=== PATIENT | male | born 1975 | race Caucasian/White ===

== ENCOUNTER 2017-04-26 10:19 | Emergency (ER) | payer BC, OTHER ==
[~2017-04-26] VITALS: Ht 157.5 cm; Wt 89.2 kg
[2017-04-26 10:25] VITALS: Ht 157.5 cm; Wt 89.2 kg
[2017-04-26] MEDS ORDERED: ONDANSETRON 4 MG INJ IV STA (10:35)
[2017-04-26] MEDS ORDERED: HYDROmorphONE 1 MG/ML SYG IV STA (10:35)
[2017-04-26] MEDS ORDERED: SOD CHLORIDE 0.9% 1,000 ML IV STA ×2 (10:35→11:58)
[2017-04-26] MEDS ORDERED: KETOROLAC 30 MG INJ IV STA (10:35)
[2017-04-26] MEDS ORDERED: TAMSULOSIN (SR) 0.4 MG CAP PO ONE (11:00)
[2017-04-26] MEDS ORDERED: CIPR500T4 PO (12:00)
[2017-04-26] MEDS ORDERED: TAMS-14 PO (12:00)
--- NOTE | 2017-04-26 12:00 | RADRPT ---
PROCEDURE: CT Abdomen and Pelvis without contrast. CLINICAL INDICATION: Flank pain. TECHNIQUE: CT scan of the abdomen and pelvis without contrast was performed on a multidetector hig h-resolution CT scanner. The patient was scanned without intravenous contrast. Coronal and sagittal reformatted images were obtained from the axial source images. Images were reviewed on a high-resol [employer] PACS workstation. One or more of the following dose reduction techniques were used: Automated exposure control, adjustment of the mA and/or kV according to patient size, use of iterative recon struction technique. The total exam CTDI equals 11.72 mGy and the total exam DLP equals 725.92 mGy- cm. COMPARISON: CT from 07/07/2012 FINDINGS: CT abdomen: The lung bases are clear. The heart size is normal, without pericardial thickening or effusion. The liver is enlarged measuring 19 cm in size and demonstrates normal density without focal mass or intrahepatic biliary dilatation. The spleen is also enlarged measuring 14.1 cm in size and is homog eneous in density. The stomach is grossly unremarkable. The pancreas as visualized is normal. The gallbladder and biliary tree are unremarkable and there is no evidence for biliary dilatation. The adrenal glands are symmetric and normal. The kidneys are symmetrically unremarkable as well. No r enal calculus or obstructive uropathy or mass lesion is seen. The aorta is of normal caliber. Mild aortoiliac atherosclerotic calcifications are present. There is no retroperitoneal lymphadenopathy. The meghna hepatis region is clear. Calcified mesenteric lymph nodes are present, likely secondary to prior granulomatous disease. Otherwise, the small bowel and mesentery, as visualized, are unremarkable. CT pelvis: The small bowel loops situated within the pelvis are unremarkable. The pelvic organs are normal. T he pelvic sidewalls and inguinal regions are clear. The sigmoid colon and rectum are unremarkable. The appendix is normal. No mass, lymphadenopathy, or free fluid is seen. No acute inflammation is s een. The surrounding osseous structures are unremarkable. No osteolytic or osteoblastic lesion is detec foe. IMPRESSION: 1. No abdominal or pelvic acute inflammatory process, mass, or lymphadenopathy. 2. Hepatosplenomegaly. RPTAT: QQ .Je Glover MD, MD Date Time Electronically viewed and signed by .Je Glover MD, on 04/26/2017 11:59 .A/
[2017-04-26] MEDS ORDERED: ROSU40TA35 PO (12:15)
[2017-04-26 12:31] VITALS: BP 139/76; PULSE 78; RESP 20
--- NOTE | 2017-04-27 06:12 | ERD ---
ER Documentation Chief Complaint Chief Complaint Complains of flank pain Hx of Kidney stones HPI This is a very pleasant 41-year-old male with a known history of nephrolithiasis. The patient indicates his last episode of kidney stones was roughly 2 years prior to arrival. Over the past several days the patient indicates he has been having severe left flank pain. The pain is 10 out of 10 in intensity. He denies any fever shaking or chills. He denies any lower abdominal pain. He does indicate that he has had hematuria with no frequency urgency or dysuria. No shortness of breath at rest or exertion. No chest pain or pressure that radiates the neck arm back or jaw. ROS All systems reviewed and are negative except as per history of present illness. Medications Home Meds Active Scripts Tamsulosin Hcl* (Flomax*) 0.4 Mg Cap.er.24h, 0.4 MG PO BID, #10 CAP Prov:ALICETRISTA 04/26/17 Ciprofloxacin Hcl* (Ciprofloxacin Hcl*) 500 Mg Tablet, 500 MG PO BID for 7 Days , TAB Prov:TRISTA JENKINS 04/26/17 Reported Medications Rosuvastatin Calcium* (Crestor*) 40 Mg Tablet, 40 MG PO QHS, #30 TAB 04/26/17 Allergies Allergies: Coded Allergies: No Known Allergy (Unverified , 01/13/13) PMhx/Soc History of Surgery: No Anesthesia Reaction: No Hx Neurological Disorder: No Hx Respiratory Disorders: No Hx Cardiac Disorders: No Hx Psychiatric Problems: No Hx Miscellaneous Medical Probl: No Hx Alcohol Use: No Hx Substance Use: No Hx Tobacco Use: Yes Smoking Status: Never smoker Physical Exam Vitals Vital Signs Date Time Temp Pulse Resp B/P Pulse Ox O2 Delivery O2 Flow Rate FiO2 04/26/17 12:31 78 20 139/76 99 Room Air 04/26/17 10:25 82.0 82 20 120/74 98 Physical Exam Constitutional:Well-developed. Well-nourished. HEENT:Normocephalic. Atraumatic.Pupils were equal round reactive to light. Moist mucous membranes.No tonsillar exudates. Neck: No nuchal rigidity. No lymphadenopathy. No posterior cervical spine tenderness or step-offs. Respiratory: Not using accessory muscles of respiration.Lungs were clear to auscultation bilaterally. No rhonchi. No rales. No wheezing. Cardiovascular: Regular rate regular rhythm.No murmurs. No rubs were appreciated.S1, S2 normal. Distal pulses are palpable 2+ bilaterally. GI: Abdomen was soft. Nontender. Non Distended. No pulsatile abdominal masses or bruits. No rebound. No guarding. Bowel sounds were present and normal. No CVA tenderness Muscle skeletal: Full range of motion of both the upper and lower extremities bilaterally.Normal muscle tone.No assymetrical calf tenderness or swelling. Skin: No petechia, no purpura. No lesions on the palms or the soles of the feet. No maculopapular rash. NEURO: Patient was alert, awake, orientated x3.No facial droop. Gait observed and normal with no ataxia.Speech had regular rate and rhythm. No focal neurological deficits. Result Diagram: 04/26/17 1041 04/26/17 1041 Results 24 hrs Laboratory Tests Test 04/26/17 10:41 White Blood Count 11.110^3/ul Red Blood Count 5.6910^6/ul Hemoglobin 17.3g/dl Hematocrit 50.2% Mean Corpuscular Volume 88.2fl Mean Corpuscular Hemoglobin 30.4pg Mean Corpuscular Hemoglobin Concent 34.5g/dl Red Cell Distribution Width 12.9% Platelet Count 48470^3/UL Mean Platelet Volume 10.4fl Neutrophils % 69.0% Lymphocytes % 22.5% Monocytes % 5.3% Eosinophils % 1.9% Basophils % 0.4% Nucleated Red Blood Cells % 0.0/100WBC Neutrophils # 7.710^3/ul Lymphocytes # 2.510^3/ul Monocytes # 0.610^3/ul Eosinophils # 0.210^3/ul Basophils # 0.110^3/ul Nucleated Red Blood Cells # 0.010^3/ul Urine Color RED Urine Clarity TURBID Urine pH 5.0 Urine Ketones TRACEmg/dL Urine Nitrite POSITIVEmg/dL Urine Bilirubin 2+mg/dL Urine Urobilinogen 1.0 E.U./dLmg/dL Urine Leukocyte Esterase NEGATIVELeu/ul Urine Microscopic WBC 2-5/HPF Urine Bacteria MODERATE/HPF Urine Red Blood Cell Casts MANY/HPF Urine Hemoglobin 3+mg/dL Urine Glucose 0.1%mg/dL Urine Total Protein 4+mg/dl Sodium Level 142mmol/L Potassium Level 4.7mmol/L Chloride Level 105mmol/L Carbon Dioxide Level 27mmol/L Anion Gap 15 Blood Urea Nitrogen 13mg/dl Creatinine 1.12mg/dl Glucose Level 105mg/dl Calcium Level 9.9mg/dl Total Bilirubin 0.2mg/dl Direct Bilirubin 0.00mg/dl Indirect Bilirubin 0.2mg/dl Aspartate Amino Transf (AST/SGOT) 24IU/L Alanine Aminotransferase (ALT/SGPT) 50IU/L Alkaline Phosphatase 53IU/L Total Protein 8.5g/dl Albumin 4.7g/dl Globulin 3.80g/dl Albumin/Globulin Ratio 1.23 Amylase Level 129U/L Lipase 118U/L Current Medications Medications (Trade) Dose Ordered Sig/Foster Route PRN Reason Start Time Stop Time Status Last Admin Dose Admin Sodium Chloride (NS) 1,000 ml @ 1,000 mls/hr Q1H STAT IV 04/26/17 10:35 04/26/17 11:34 DC 04/26/17 11:13 Hydromorphone HCl (Dilaudid) 1 mg ONCE STAT IV 04/26/17 10:35 04/26/17 10:37 DC Ondansetron HCl (Zofran Inj) 4 mg ONCE STAT IV 04/26/17 10:35 04/26/17 10:37 DC 04/26/17 11:09 Ketorolac Tromethamine (Toradol) 30 mg ONCE STAT IV 04/26/17 10:35 04/26/17 10:37 DC 04/26/17 11:09 Tamsulosin HCl 0.4 mg 0.4 mg ONCE ONCE PO 04/26/17 11:00 04/26/17 11:01 DC 04/26/17 11:00 Sodium Chloride (NS) 1,000 ml @ 1,000 mls/hr Q1H STAT IV 04/26/17 11:58 04/26/17 12:33 DC Procedures/MDM The patient presented to the emergency department with back pain. My differential diagnosis included but was not limited to spinal origins of the pain such as fracture, osteomyelitis, epidural abscess, neoplasm, spondylolishtesis, discogenic, cauda equina syndrome or musculoligamentous. Nonspinal causes such as AAA, upper UTI, renal colic, aortic dissection, abdominal neoplasm were also considered as an etiology into their pain. I did obtain a noncontrast CT scan of the abdomen and pelvis which showed no evidence of nephrolithiasis at this time active uropathy. The patient had no electrolyte abnormalities. The patient did have gross hematuria with no evidence of urinary tract infection. I did indicate to the patient that he could have passed a kidney stone and he did receive a total of a liter bolus of 0.9 normal saline. He was refusing analgesic medication in the emergency department as his flank pain had completely resolved. Was sent home with a prescription of ciprofloxacin to take prophylactically to event secondary bacterial infection and follow-up with urologist. The patient was discharged home in fair condition. They were instructed to return to the emergency department at any time if there was any worsening of their condition. The patient stated they would follow up with their PCP in the next 24-48 hours to initiate a suitable medication regimen under the care of their PCP as well as to allow their PCP to monitor any drug reactions. The patient was discharged home with prescriptions after they gave informed consent to the new medication. They were also fully informed by myself on the adverse effects and adverse drug interactions in order to provide adequate safeguards to prevent possible adverse reactions to medications. Departure Diagnosis: Primary Impression: Flank pain Condition: Fair Patient Instructions: Kidney Stone W/ Colic TRISTA JENKINS Apr 27, 2017 06:12
== END 2017-04-26 12:32 | disposition home or self-care (01) ==
LOC: E/R 10:19
DX: R10.9 Unspecified abdominal pain (principal); R40.2252 Coma scale, best verbal response, oriented, at arrival to emergency department; R40.2362 Coma scale, best motor response, obeys commands, at arrival to emergency department; R40.2142 Coma scale, eyes open, spontaneous, at arrival to emergency department; Z87.891 Personal history of nicotine dependence
CPT/HCPCS: 74176; 80053; 81001; 82150; 83690; 85025; 87086; 96374; 96375; 99285; J1885; J2405; J7030